=== PATIENT | male | born 1965 | race Caucasian/White ===

== ENCOUNTER 2016-10-30 21:55 | Emergency (ER) | payer BC, OTHER | END 2016-10-31 04:15 | disposition home or self-care (01) | LOC: ER1 21:55 | DX: S01.81XA Laceration without foreign body of other part of head, initial encounter (principal); I10 Essential (primary) hypertension; X50.1XXA Overexertion from prolonged static or awkward postures, initial encounter | CPT/HCPCS: 70450; 70486; 90471; 90715; 99283 ==